=== PATIENT | male | born 2005 | race African-American/Black ===

== ENCOUNTER 2023-08-13 14:56 | Outpatient (CLI) | payer OTHER, SELFPAY ==
--- NOTE | 2023-08-13 15:30 | MR_ITS ---
Patient: REINIER CASANOVA Facility:?[facility] Patient ID:[id number] Site Patient ID:?[id number]. Site :?2003 Study:?MRI-Extremity Left FEMUR W/WO 20 CC DOTAREM-08/13/2023 4:27:53 PM Ordering Physician:?AKASH MOLINA Final Report: INDICATION: Localized swelling/mass. TECHNIQUE: Contrast and contrast enhanced MRI left femur/thigh. 20 milliliters of Dotarem intravenous gadolinium was administered. COMPARISON: No prior. FINDINGS: Osseous structures: No left femoral marrow replacement process, fracture or avascular necrosis. Musculotendinous structures: No acute muscle injury or muscle atrophy. Soft tissues: There is a lobulated multifocal process present within the anterior subcutaneous tissues of the left thigh. This spans a 15 cm craniocaudad extent by 10 cm medial/lateral by 2 cm anterior/posterior extent. Process demonstrates high T2 signal with intervening preserved subcutaneous fat between lobules of the process. Process intensely enhances following gadolinium administration. Presence of intervening subcutaneous fat favors a benign process with vascular malformation type lesion favored. Subcutaneous hemangioma is a primary consideration. A venous malformation is probably less likely. Appearance not highly suggestive of a soft tissue sarcoma. Plexiform neurofibroma less likely. IMPRESSION: 1. 15 cm lobulated multifocal process within the anterior subcutaneous tissues of the left thigh. Presence of intervening subcutaneous fat between the lobules favors benign process with vascular malformation type lesion favored. Subcutaneous hemangioma is a primary consideration. Venous malformation probably less likely. Plexiform neurofibroma less likely. Appearance is not highly suggestive of soft tissue sarcoma. Consider MRI surveillance. Dictated by Marcio Maddox MD @ 08/14/2023 9:27:42 AM Signed by:?Marcio Maddox MD @08/14/2023 9:27:42 AM (Electronic Signature)
== END 2023-08-13 14:57 | disposition home or self-care (01) ==
LOC: MRI 14:57
PROVIDERS: Visit Provider Surgery
DX: R22.42 Localized swelling, mass and lump, left lower limb (principal)
CPT/HCPCS: 73720; A9575

== ENCOUNTER 2023-09-03 09:08 | Day surgery (SDC) | payer OTHER, SELFPAY ==
[2023-09-03] VITALS (16 sets, daily range): BP systolic 124–151; BP diastolic 72–101; PULSE 63–91; RESP 16–21; TEMP 36.3–36.9; O2SAT 95–100; BMI 23.7
--- NOTE | 2023-09-03 09:23 | CT_ITS ---
Patient: REINIER CASANOVA Facility:?[facility] Patient ID:?[id number] Site Patient ID:?[id number] Site :?2003 Study:?CT-Abdomen/Pelvis 81CC ISOVUE 370-09/03/2023 10:37:26 AM Ordering Physician:?DR. BLACKMAN Final Report: INDICATION: Lower abdominal pain, not otherwise described. COMPARISON: None available. TECHNIQUE: CT of the abdomen and pelvis with 81 cc of Isovue 370 intravenous contrast. Please note that all CT scans at this facility use dose modulation, iterative reconstruction, and/or weight-based dosing when appropriate to reduce radiation dose to as low as reasonably achievable. FINDINGS: ABDOMEN Liver: Normal hepatic attenuation. No suspicious focal hepatic lesion. No intrahepatic biliary ductal dilatation. Patent portal and hepatic veins. Gallbladder: Normal gallbladder size. Normal common duct caliber. No pericholecystic inflammatory changes. Pancreas: Normal pancreatic attenuation. No focal lesion. Normal duct caliber. No peripancreatic inflammatory changes. Spleen: Normal splenic attenuation. No suspicious focal lesion. Patent splenic artery and vein. Adrenal Glands: Symmetrical adrenal glands. No focal lesion of significance. Kidneys: Normal bilateral renal attenuation. No suspicious focal lesion. No obstructing nephrolith or dilatation of the intrarenal collecting systems. Patent renal arteries and veins. Nondilated upper urinary tracts. Gastrointestinal tract: Findings consistent with early acute uncomplicated appendicitis with dilatation of the appendiceal tip appendiceal measuring 11 mm (series 2; image 100), mucosal hyperenhancement and mild surrounding periappendiceal fat infiltration consistent with edema. No inflammatory changes. Normal mesentery. Normal appendix. Vascular: Abdominal aorta and its major proximal branches including the celiac, superior mesenteric, inferior mesenteric, renal, and bilateral common iliac arteries are patent. Inferior vena cava, portal and superior mesenteric veins are patent. Additional findings: No incidental adenopathy. No significant ascites, free fluid or pneumoperitoneum. PELVIS No bladder lesion is identified. No significant incidental findings related to the prostate and seminal vesicles. No abnormal free fluid. No incidental adenopathy. SKELETON AND BODY WALL No acute or suspicious incidental findings. LOWER THORAX Partially included lower thoracic wall, lungs, pleural spaces and mediastinum are otherwise without significant incidental findings. IMPRESSION: Acute uncomplicated appendicitis. Please note that all CT scans at this facility use dose modulation, iterative reconstruction, and/or weight-based dosing when appropriate to reduce radiation dose to as low as reasonably achievable. Dictated by Junior Uribe MD @ 09/03/2023 10:58:44 AM ----- ADDENDUM ----- ADDENDUM: Report received by Dr. BLACKMAN at 10:59 a.m. [employer] Dictated by Junior Uribe MD @ Sep 03 2023 11:02AM Signed by:?Junior Uribe MD @09/03/2023 10:58:44 AM (Electronic Signature)
--- NOTE | 2023-09-03 09:33 | ED_ITS ---
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 Pain is periumbilical without radiation. He has had no fevers no chills no night sweats he is vomiting but has had no blood in his vomitus. He has had no diarrhea. No recent sick contacts. He has had no similar symptoms. He states his pain is modest and periumbilical without radiation. Related Data Home Medications Medication Instructions Recorded Confirmed No Known Home Medications 07/14/23 07/30/23 Allergies Allergy/AdvReac Type Severity Reaction Status Date / Time No Known Drug Allergies Allergy Verified 09/03/23 10:31 Review of Systems Status of ROS: Reports: 10 or more systems reviewed and unremarkable except as noted in History and below PFSH PFSH Social History What is your current living situation?: I presently have a place to live Problems where you live: no known problems In the past 12 months, utilities in danger of being shut off: yes In past 12 months, lack of transportation kept you from medical appts, meetings, work, or getting things needed for daily living: yes In the past 12 mos, have been you worried that your food would run out before you had money to buy more?: sometimes true In the past 12 mos, the food you bought just didn't last and you didn't have money to buy more?: sometimes true Smoking Status: Never smoker How often do you have a drink containing alcohol: never How often do you have six or more drinks on one occasion: Never AUDIT-C Alcohol total score: 0 Non-prescribed substance use: denies use How often does anyone, including family, friends and others, physically hurt you : never How often does anyone, including family, friends and others, insult or talk down to you: rarely How often does anyone, including family, friends and others, threaten you with harm: never How often does anyone, including family, friends and others, scream or curse at you: rarely Little interest or pleasure in doing things: not at all Feeling down, depressed, or hopeless: several days Exam Narrative: Exam Narrative: EXAM GENERAL: Patient appears comfortable and well. EYES: No scleral icterus. ENT: Tympanic membranes and oropharynx normal. THYROID: no thyroid nodules or thyromegaly. LYMPH: No supraclavicular or cervical lymphadenopathy. SKIN: Visible skin seen during exam normal or with benign process only. EXT: No dependent lower extremity pedal edema. HEART: Regular rate and rhythm with no murmurs, rubs, or gallops. LUNGS: Clear to auscultation bilaterally with no crackles or wheezes. ABD: Soft, non tender, non distended. PSYCH: Good eye contact, speech is not pressured. Const: Vital Signs, click to edit/add: Vital Signs - 24 hr 09/03/23 09:13 Temperature 98.5 F Pulse Rate [Pulse Oximeter] 72 Respiratory Rate 16 Blood Pressure [Ri ght Upper Arm] 132/81 Pulse Oximetry 98 Oxygen Delivery Me thod Room Air Course Course ED Course: Patient seen and examined. CBC CMP amylase UA CT abdomen pelvis pending. IV started 4 mg of IV Zofran 1000 mL of normal saline given. Vital Signs Vital signs: Initial Vital Signs Temperature 98.5 F 09/03/23 09:13 Temperature Source Temporal Artery Scan 09/03/23 09:13 Pulse Rate 72 09/03/23 09:13 Respiratory Rate 16 09/03/23 09:13 Blood Pressure 132/81 09/03/23 09:13 Blood Pressure Mean 98 09/03/23 09:13 Blood Pressure Position Sitting 09/03/23 09:13 Pulse Oximetry 98 09/03/23 09:13 Oxygen Delivery Method Room Air 09/03/23 09:13 Vital Signs Temperature 98.5 F 09/03/23 09:13 Pulse Rate 72 09/03/23 09:13 Respiratory Rate 16 09/03/23 09:13 Blood Pressure 132/81 09/03/23 09:13 Pulse Oximetry 98 09/03/23 09:13 Oxygen Delivery Method Room Air 09/03/23 09:13 Temperature 98.5 F 09/03/23 09:13 Pulse Rate 72 09/03/23 09:13 Respiratory Rate 16 09/03/23 09:13 Blood Pressure 132/81 09/03/23 09:13 Pulse Oximetry 98 09/03/23 09:13 Oxygen Delivery Method Room Air 09/03/23 09:13 Medications Administered Medications: Discontinued Medications Generic Name Dose Route Start Last Admin Trade Name Brain PRN Reason Stop Dose Admin Ondansetron HCl 4 mg 09/03/23 09:24 09/03/23 09:42 Ondansetron 2 Mg/Ml Inj IVP 09/03/23 09:25 4 mg ONCE ONE Administration Medical Decision Making MDM Narrative Medical decision making narrative: Patient is a 18-year-old gentleman who last 818 hours ago presents with 12 hours of mid abdominal pain nausea and vomiting. Workup shows reasonable laboratory studies. He does have acute uncomplicated appendicitis on his CT scan. Patient will be admitted to same-day surgery for appendectomy. Care transferred to General surgery. Differential diagnosis included but not limited to acute appendicitis perforated viscus gastroenteritis diverticulitis torsed colon. Lab Data Labs: Lab Results 09/03/23 09/03/23 Range/Units 09:35 09:40 WBC 8.72 (4.50-11.00) K/uL RBC 5.28 (4.30-5.90) m/uL Hgb 14.1 (13.5-17.5) gm/dL Hct 44.6 (37.0-53.0) % MCV 85 (80-100) fL MCH 27 (26-34) pg MCHC 32 (32-36) gm/dL RDW Coeff of Cynthia 11.9 (11.5-15.5) % Plt Count 178 (140-440) K/uL Neut % (Auto) 72.3 H (42.0-72.0) % Lymph % (Auto) 16.1 L (20-44) % Crawford % (Auto) 10.6 (0.0-11.0) % Eos % (Auto) 0.6 (0.0-7.0) % Baso % (Auto) 0.3 (0.0-3.0) % Neut # (Auto) 6.30 (1.7-7.0) K/uL Lymph # (Auto) 1.40 (0.90-2.90) K/uL Crawford # (Auto) 0.90 (0.00-0.90) K/UL Eos # (Auto) 0.05 (0.00-0.50) K/uL Baso # (Auto) 0.03 (0.00-0.30) K/uL Abs Immat Gran (auto) 0.01 (0.00-0.30) K/uL Imm/Tot Granulo (auto) 0.1 % Sodium 137 (135-149) mmol/L Potassium 3.8 (3.6-5.1) mmol/L Chloride 109 (96-114) mmol/L Carbon Dioxide 25 (20-32) mmol/L Anion Gap 3 L (7-15) mEq/L BUN 14 (5-24) mg/dL Creatinine 0.7 (0.5-1.5) mg/dL Estimated Creat Clear 173.81 Estimated GFR 135 ml/min Glucose 100 (60-115) mg/dL Calcium 9.3 (8.4-10.6) mg/dL Total Bilirubin 0.8 (0.1-1.5) mg/dL AST 27 (12-35) U/L ALT 21 (4-50) U/L Alkaline Phosphatase 69 (40-150) U/L Total Protein 7.9 (6.0-8.3) g/dL Albumin 4.4 (3.3-5.0) g/dL Amylase 119 H (18-89) U/L Urine Color Yellow (Yellow) Urine Appearance Cloudy A (Clear) Urine pH 7.0 (5.0-8.5) Ur Specific [place] 1.025 (1.000-1.030) Urine Protein Negative (Negative) Urine Glucose (UA) Negative (Negative) Urine Ketones Negative (Negative) Urine Blood Negative (Negative) Urine Nitrite Negative (Negative) Urine Bilirubin Negative (Negative) Urine Urobilinogen 1.0 (0.2-1.0) Ur Leukocyte Esterase Negative (Negative) Urine RBC 0-2 (0-2) Urine WBC 0-2 (0-5) Ur Squamous Epith Cells None (None-Few) Amorphous Sediment Many A (None) Urine Bacteria Few A (None) Discharge Plan Discharge Clinical Impression: Acute appendicitis Patient Disposition: XFER to OR Condition: Stable Prescriptions: No Action No Known Home Medications Follow Up/Referrals: Provider,Not a Local [Primary Care Provider] -
[2023-09-03] MEDS: ONDANSETRON 2 MG/ML inj 4 MG IVP (09:42)
[2023-09-03 09:52] LABS: Basophils Absolute Auto 0.03 K/uL (0.00-0.30); Basophils Percent Auto 0.3 % (0.0-3.0); Eosinophils Absolute Auto 0.05 K/uL (0.00-0.50); Eosinophils Percent Auto 0.6 % (0.0-7.0); Hematocrit 44.6 % (37.0-53.0); Hemoglobin* 14.1 gm/dL (13.5-17.5); Immature Granulocytes Abs Auto 0.01 K/uL (0.00-0.30); Immature Granulocytes Pct Auto 0.1 %; Lymphocytes Percent Auto 16.1 % (20-44); Mean Corpuscular HGB Conc 32 gm/dL (32-36); Mean Corpuscular Hemoglobin 27 pg (26-34); Mean Corpuscular Volume 85 fL (80-100); Monocytes Percent Auto 10.6 % (0.0-11.0); Neutrophils Percent Auto 72.3 % (42.0-72.0); Platelet Count* 178 K/uL (140-440); RDW Coefficient of Variation % 11.9 % (11.5-15.5); Red Blood Count 5.28 m/uL (4.30-5.90); White Blood Count* 8.72 K/uL (4.50-11.00)
[2023-09-03 09:59] LABS: Slide Review Reflex No
[2023-09-03 10:01] LABS: Albumin* 4.4 g/dL (3.3-5.0); Chloride* 109 mmol/L (96-114); Potassium* 3.8 mmol/L (3.6-5.1); Sodium* 137 mmol/L (135-149)
[2023-09-03 10:03] LABS: Amylase* 119 U/L (18-89)
[2023-09-03 10:04] LABS: Alanine Aminotransferase* 21 U/L (4-50); Alkaline Phosphatase* 69 U/L (40-150); Anion Gap 3 mEq/L (7-15); Aspartate Amino Transferase* 27 U/L (12-35); Bilirubin Total* 0.8 mg/dL (0.1-1.5); Blood Urea Nitrogen* 14 mg/dL (5-24); Calcium* 9.3 mg/dL (8.4-10.6); Carbon Dioxide* 25 mmol/L (20-32); Creatinine* 0.7 mg/dL (0.5-1.5); Est. Creatinine Clearance* 173.81; Estimated Glomerular Filt Rate 135 ml/min; Glucose* 100 mg/dL (60-115); Total Protein* 7.9 g/dL (6.0-8.3)
[2023-09-03 10:23] LABS: Appearance Urine Cloudy (Clear); Bilirubin Urine Negative (Negative); Blood Urine Negative (Negative); Color Urine Yellow (Yellow); Glucose Urine Negative (Negative); Ketones Urine Negative (Negative); Leukocyte Esterase Urine Negative (Negative); Nitrite Urine Negative (Negative); Protein Urine Negative (Negative); Specific Gravity Urine 1.025 (1.000-1.030)
[2023-09-03 10:32] LABS: Amorphous Sediment Urine Many; Bacteria Urine Few; RBC Urine 0-2 (0-2); WBC Urine 0-2 (0-5)
[2023-09-03] MEDS: 0.9 % SODIUM CHLORIDE 1000 ml 1,000 ML IV (11:00)
--- NOTE | 2023-09-03 13:03 | P.GSHP_ITS ---
History of Present Illness History of Present Illness Date Seen: 09/03/23 Chief complaint: Vomiting, lower abdominal pain Narrative: Khari Bailey is a 18 year old male Who presents to the emergency department with 1 day of abdominal pain. He states that yesterday evening he developed mid abdominal pain. He thought that maybe he was just hungry so he ate a large amount of food around 11:00 p.m.. He vomited after eating and then felt worse. He tried taking Tylenol however this did not help. He has not had nausea or vomiting since however he has pain that is in the mid abdomen and also in the right lower quadrant. He does feel better since being in the emergency department. He states that it hurts to stretch and the pain is worse with certain movements. He has not had any fevers. [facility] Social History (Updated 09/03/23 @ 13:04 by Radha Brock MD) Narrative: He is a student at [employer]. He is a freshman. He is a journa lism and music major. He does not smoke. Alcohol use is rare. What is your current living situation?: I presently have a place to live Problems where you live: no known problems In the past 12 months, utilities in danger of being shut off: yes In past 12 months, lack of transportation kept you from medical appts, meetings, work, or getting things needed for daily living: yes In the past 12 mos, have been you worried that your food would run out before you had money to buy more?: sometimes true In the past 12 mos, the food you bought just didn't last and you didn't have money to buy more?: sometimes true Smoking Status: Never smoker How often do you have a drink containing alcohol: never How often do you have six or more drinks on one occasion: Never AUDIT-C Alcohol total score: 0 Non-prescribed substance use: denies use How often does anyone, including family, friends and others, physically hurt you : never How often does anyone, including family, friends and others, insult or talk down to you: rarely How often does anyone, including family, friends and others, threaten you with harm: never How often does anyone, including family, friends and others, scream or curse at you: rarely Little interest or pleasure in doing things: not at all Feeling down, depressed, or hopeless: several days Meds Home Medications and Allergies Home Medications Medication Instructions Recorded Confirmed Type No Known Home Medications 07/14/23 07/30/23 History Allergies Allergy/AdvReac Type Severity Reaction Status Date / Time No Known Drug Allergies Allergy Verified 09/03/23 10:31 Exam Narrative: Exam Narrative: General appearance: Alert, cooperative, and in no distress Eyes: PERRLA, eye lids clear, and sclera white HENT Head: Normocephalic Ears: External ears normal Pulmonary: Clear to auscultation bilaterally Cardiovascular Heart: Regular rate and rhythm Extremities: warm and well perfused Gastrointestinal Abdominal: On his abdomen he has no scars. May have a slight umbilical hernia. He is tender in the left lower abdomen as well as the right lower abdomen. The right side is more tender without significant rebound. Musculoskeletal: Extremities: Upper: Both upper extremities have normal joint range of motion and intact strength. Lower: Both lower extremities have normal joint range of motion and intact strength. Skin: Normal skin color, texture, and turgor. Neurologic: No focal deficits Psychiatric: Alert, oriented, cooperative, normal affect. Const: Vital Signs, click to edit/add: Vital Signs - 24 hr 09/03/23 09:13 09/03/23 12:54 Temperature 98.5 F Pulse Rate [Pulse Oximeter] 72 80 Respiratory Rate 16 16 Blood Pressure [Ri ght Upper Arm] 132/81 130/72 Pulse Oximetry 98 97 Oxygen Delivery Me thod Room Air Room Air Results Results Labs: White blood cell count is normal. Abdomen CT scan report/results: report reviewed and image reviewed Additional studies: Patient: KHARI BAILEY Facility: [facility] Site . Site : 2003 Study: CT-Abdomen/Pelvis 81CC ISOVUE 370-09/03/2023 10:37:26 AM Ordering Physician: DR. BLACKMAN Final Report: INDICATION: Lower abdominal pain, not otherwise described. COMPARISON: None available. TECHNIQUE: CT of the abdomen and pelvis with 81 cc of Isovue 370 intravenous contrast. Please note that all CT scans at this facility use dose modulation, iterative reconstruction, and/or weight-based dosing when appropriate to reduce radiation dose to as low as reasonably achievable. FINDINGS: ABDOMEN Liver: Normal hepatic attenuation. No suspicious focal hepatic lesion. No intrahepatic biliary ductal dilatation. Patent portal and hepatic veins. Gallbladder: Normal gallbladder size. Normal common duct caliber. No pericholecystic inflammatory changes. Pancreas: Normal pancreatic attenuation. No focal lesion. Normal duct caliber. No peripancreatic inflammatory changes. Spleen: Normal splenic attenuation. No suspicious focal lesion. Patent splenic artery and vein. Adrenal Glands: Symmetrical adrenal glands. No focal lesion of significance. Kidneys: Normal bilateral renal attenuation. No suspicious focal lesion. No obstructing nephrolith or dilatation of the intrarenal collecting systems. Patent renal arteries and veins. Nondilated upper urinary tracts. Gastrointestinal tract: Findings consistent with early acute uncomplicated appendicitis with dilatation of the appendiceal tip appendiceal measuring 11 mm (series 2; image 100), mucosal hyperenhancement and mild surrounding periappendiceal fat infiltration consistent with edema. No inflammatory changes. Normal mesentery. Normal appendix. Vascular: Abdominal aorta and its major proximal branches including the celiac, superior mesenteric, inferior mesenteric, renal, and bilateral common iliac arteries are patent. Inferior vena cava, portal and superior mesenteric veins are patent. Additional findings: No incidental adenopathy. No significant ascites, free fluid or pneumoperitoneum. PELVIS No bladder lesion is identified. No significant incidental findings related to the prostate and seminal vesicles. No abnormal free fluid. No incidental adenopathy. SKELETON AND BODY WALL No acute or suspicious incidental findings. LOWER THORAX Partially included lower thoracic wall, lungs, pleural spaces and mediastinum are otherwise without significant incidental findings. IMPRESSION: Acute uncomplicated appendicitis. Please note that all CT scans at this facility use dose modulation, iterative reconstruction, and/or weight-based dosing when appropriate to reduce radiation dose to as low as reasonably achievable. Dictated by Junior Uribe MD @ 09/03/2023 10:58:44 AM Progress Note:A&P Assessment and plan (1) Acute appendicitis: Status: Acute Plan The patient is a 18-year-old male with acute appendicitis. We discussed options for management. He is understandably nervous about surgery as he is from [place] and does not have family here with him. We discussed appendectomy as well as risks, benefits and recovery. This can most often be done laparoscopically. It is unlikely that his appendix has perforated, however he understands that perforated appendicitis does carry increased risk of postoperative complications such as abscess. We also discussed non operative management of appendicitis. He does not have an appendicolith and has no signs of perforation or sepsis. I think he would be a reasonable candidate for this if he so desired. We discussed that we would treat him 1st with IV antibiotics followed by oral antibiotics. If at any point he worsened he would return to be seen. He understands that there is a risk of perforation, making surgery more complicated. The literature sites a 90% success rate with non operative management In the 1st week, however he is still at risk for developing appendicitis in the future and over time will likely develop appendicitis again. We discussed that there is really no options to try to prevent appendicitis in the future, other than a healthy balanced diet. I also spoke to the patient's aunt again relaying risks and benefits of each management option and he spoke with her and elected to proceed with appendectomy. He last ate last evening therefore we will plan on proceeding urgently this afternoon.
[2023-09-03] MEDS: BUPIVACAINE 0.25% 30 ML INJECTION (13:24)
[2023-09-03] MEDS: LACTATED RINGERS 1000 ML 1,000 ML 75 ML IV (13:55)
--- NOTE | 2023-09-03 13:55 | P.GSOP_ITS ---
Operative Note Date of procedure: 09/03/23 Pre-op diagnosis: Acute appendicitis Post-op diagnosis: Acute, non perforated appendicitis Type of Procedure: Laparoscopic appendectomy Indications: The patient is a 18-year-old male who presents to emergency department with 1 day of abdominal pain which moved to his right lower quadrant. Workup revealed early acute appendicitis. We discussed options for management and I recommended appendectomy. After discussion of risks and benefits of both appendectomy verses non operative management with antibiotics, he agreed to proceed with appendectomy. Procedure Description: After discussing the risks and benefits of the procedure, the patient signed informed consent.? The operative site was marked and the patient was brought to the operating room and placed on the operating table in supine position.? Care was taken to pad the patient's pressure points.?? The patient was then intubated by anesthesia.?? The operative site was then prepped and draped in the usual sterile fashion.? A time-out was then performed. Entrance to the abdomen was obtained via a 5 mm optical trocar in the left upper quadrant. The abdomen was insufflated and briefly surveyed for any signs of injury. There were none. A 12 mm port was placed inferior to the umbilicus as well as a 5 mm port in the left lower quadrant. Both were done under direct vision. The patient was then placed in Trendelenburg position with the right side up. The small bowel was gently moved out of the way and the appendix was in view. it was inflamed and dilated. There was fibrinous exudate located on the appendix. No sign of perforation. A small amount of dissection was necessary to free the appendix from the surrounding pelvic attachments. The appendix was grasped and pulled into view. A mesenteric window was created between the base of the appendix and the mesoappendix. An Endo-MIL purple load stapler was then used to transect the appendix at its base. A vascular load stapler was then used to divide the mesoappendix. The staple lines were inspected for bleeding. There was none. The appendix was then removed from the abdomen using an Endo- Catch bag. The specimen was sent to pathology. The 12 mm port site fascia was closed with 0 Vicryl. The skin was then closed with absorbable subcuticular suture. Sterile dressings were then applied. Instrument sponge and needle counts were correct at the end of the case. The patient was then woken and transported to the PACU in stable condition. ? The patient tolerated the procedure well. Findings: Acute non perforated appendicitis Anesthesia: GETA Surgeon: Radha Brock MD Estimated blood loss (mL): 5 Specimen: Appendix Condition: stable Disposition: PACU
--- NOTE | 2023-09-03 13:59 | W.ANESCHARGE ---
Anesthesia Charges Start Date/Time Anesthesia Start Date: 09/03/23 Anesthesia Start Time: 12:58 Stop Date/Time Anesthesia Stop Date: 09/03/23 Anesthesia Stop Time: 14:00
--- NOTE | 2023-09-03 14:45 | SUR.PHASEI ---
Patient meets anesthesia discharge criteria for PACU.
--- NOTE | 2023-09-03 14:55 | W.ANESCHARGE ---
Anesthesia Charges Start Date/Time Anesthesia Start Date: 09/03/23 Anesthesia Start Time: 12:58 Stop Date/Time Anesthesia Stop Date: 09/03/23 Anesthesia Stop Time: 14:00
[2023-09-03] MEDS: HYDROCODONE-ACETAMIN 5-325 MG 1 TAB PO (15:03)
--- NOTE | 2023-09-03 16:14 | SUR.PHASEII ---
iv dc'd intact
== END 2023-09-03 16:24 | disposition home or self-care (01) ==
LOC: ED 11:41 → OR 12:57
PROVIDERS: Emergency Provider Internal Medicine; Visit Provider Surgery
PROC: 0DTJ4ZZ Resection of Appendix, Percutaneous Endoscopic Approach (ICD-10-PCS; CPT 44970; principal; 2023-09-03 13:00)
DX: K35.80 Unspecified acute appendicitis (principal); R10.33 Periumbilical pain
CPT/HCPCS: 44970; 00840; 36415; 74177; 80053; 81001; 81003; 82150; 85025; 87086; 88304; 99284; 99285; A9270; J0330; J0665; J1885; J2250; J2405; J2543; J2704; J3010; J3490; J7030; J7120; Q9967

== ENCOUNTER 2023-11-12 08:59 | Emergency (ER) | payer OTHER, SELFPAY ==
[2023-11-12 09:07] VITALS: BP 145/90; PULSE 68; RESP 18; TEMP 37.1; O2SAT 99; BMI 24.0
--- NOTE | 2023-11-12 09:18 | ED_ITS ---
HPI - General Adult General Chief complaint: Unspecified Complaint, Adult Stated complaint: STD Testing Time Seen by Provider: 11/12/23 09:09 Source: patient Mode of arrival: ambulatory Limitations: no limitations History of Present Illness HPI narrative: 18-year-old male coming in today requesting routine STI screening. 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 Related Data Home Medications ?Medication ?Instructions ?Recorded ?Confirmed No Known Home Medications 07/14/23 07/30/23 Allergies Allergy/AdvReac Type Severity Reaction Status Date / Time No Known Drug Allergies Allergy Verified 09/15/23 10:18 Review of Systems Status of ROS: Reports: 6 or more systems reviewed and unremarkable except as noted in History and below PFSH PFS Social History Narrative: He is a student at [employer]. He is a freshman. He is a journalism and music major. He does not smoke. Alcohol use is rare. What is your current living situation?: I presently have a place to live Problems where you live: no known problems In the past 12 months, utilities in danger of being shut off: yes In past 12 months, lack of transportation kept you from medical appts, meetings, work, or getting things needed for daily living: yes In the past 12 mos, have been you worried that your food would run out before you had money to buy more?: sometimes true In the past 12 mos, the food you bought just didn't last and you didn't have money to buy more?: sometimes true Smoking Status: Never smoker How often do you have a drink containing alcohol: never How often do you have six or more drinks on one occasion: Never AUDIT-C Alcohol total score: 0 Non-prescribed substance use: denies use How often does anyone, including family, friends and others, physically hurt you : never How often does anyone, including family, friends and others, insult or talk down to you: rarely How often does anyone, including family, friends and others, threaten you with harm: never How often does anyone, including family, friends and others, scream or curse at you: rarely Little interest or pleasure in doing things: not at all Feeling down, depressed, or hopeless: several days Exam Narrative: Exam Narrative: Well-nourished well-developed patient in no acute distress. Alert and oriented. Answers questions appropriately. Mood and affect are appropriate. Thoughts are goal oriented and rational. No tangential or magical thinking noted. Patient speaks in full sentences without needing to catch their breath. Const: Vital Signs, click to edit/add: Vital Signs - 24 hr 11/12/23 09:07 Temperature 98.8 F Pulse Rate [Right Pulse Oximeter] 68 Respiratory Rate 18 Blood Pressure [Ri ght Upper Arm] 145/90 H Pulse Oximetry 99 Oxygen Delivery Me thod Room Air Course Vital Signs Vital signs: Initial Vital Signs Temperature 98.8 F 11/12/23 09:07 Temperature Source Temporal Artery Scan 11/12/23 09:07 Pulse Rate 68 11/12/23 09:07 Pulse Rhythm Regular 11/12/23 09:07 Pulse Strength 3+ Normal 11/12/23 09:07 Respiratory Rate 18 11/12/23 09:07 Blood Pressure 145/90 H 11/12/23 09:07 Blood Pressure Mean 108 H 11/12/23 09:07 Blood Pressure Position Semi-Fowlers 11/12/23 09:07 Pulse Oximetry 99 11/12/23 09:07 Oxygen Delivery Method Room Air 11/12/23 09:07 Vital Signs Temperature 98.8 F 11/12/23 09:07 Pulse Rate 68 11/12/23 09:07 Respiratory Rate 18 11/12/23 09:07 Blood Pressure 145/90 H 11/12/23 09:07 Pulse Oximetry 99 11/12/23 09:07 Oxygen Delivery Method Room Air 11/12/23 09:07 Temperature 98.8 F 11/12/23 09:07 Pulse Rate 68 11/12/23 09:07 Respiratory Rate 18 11/12/23 09:07 Blood Pressure 145/90 H 11/12/23 09:07 Pulse Oximetry 99 11/12/23 09:07 Oxygen Delivery Method Room Air 11/12/23 09:07 Medical Decision Making MDM Narrative Medical decision making narrative: Patient requesting STI testing for HIV, gonorrhea, chlamydia, syphilis, hepatitis-B, hepatitis-C. Discharge Plan Discharge Clinical Impression: Routine screening for STI (sexually transmitted infection) Patient Disposition: Home, Self-Care Condition: Stable Additional Instructions: Results will be put on your portal. Call your primary care provider if you have any questions. Prescriptions: No Action No Known Home Medications Follow Up/Referrals: Provider,Not a Local [Primary Care Provider] - Stand Alone Forms: [employer] Info Instructions
[2023-11-12 10:26] LABS: Hepatitis B Surface Antigen* Negative (Negative)
[2023-11-12 10:44] LABS: Hepatitis C Virus Antibody* Negative (Negative)
[2023-11-12 11:01] LABS: Chlamydia DNA Amplified* NOT DETECTED (No Detected); GC DNA Amplified* NOT DETECTED (No Detected)
[2023-11-12 11:02] LABS: HIV 1/2/P24 Combo Screen* Negative (Negative)
[2023-11-14 19:15] LABS: Rapid Plasma Reagin (RPR) Non Reactive (Non Reactive)
== END 2023-11-12 09:36 | disposition home or self-care (01) ==
LOC: ED 09:24
PROVIDERS: Emergency Provider Family Medicine
DX: Z11.3 Encounter for screening for infections with a predominantly sexual mode of transmission (principal)
CPT/HCPCS: 36415; 86592; 86703; 86803; 87340; 87491; 87591; 99282; 99283

== ENCOUNTER 2024-01-09 12:52 | Emergency (ER) | payer OTHER, SELFPAY ==
[2024-01-09 12:57] VITALS: BP 130/72; PULSE 73; RESP 18; TEMP 36.2; O2SAT 98; BMI 23.7
--- NOTE | 2024-01-09 13:27 | ED.GENADULT ---
HPI - General Adult General Chief complaint: Ear/Nose/Throat Problem Stated complaint: ear pressure 3weeks Time Seen by Provider: 01/09/24 12:53 History of Present Illness HPI narrative: 18-year-old male whose home is [facility], he is attending [employer]. He flew back couple of weeks ago and has had ear pressure for the 2-3 weeks since he flew back from [place]. He has not had pain now but he feels a crackling sensation is years occasionally left is worse than right now, but he has no pain either ear. He has been generally quite healthy. He has tried some decongestants. Related Data Home Medications ?Medication ?Instructions ?Recorded ?Confirmed No Known Home Medications 07/14/23 01/09/24 Allergies Allergy/AdvReac Type Severity Reaction Status Date / Time No Known Drug Allergies Allergy Verified 01/09/24 13:02 Review of Systems Status of ROS: Reports: 6 or more systems reviewed and unremarkable except as noted in History and below [facility] Social History Narrative: He is a student at [employer]. He is a freshman. He is a journalism and music major. He does not smoke. Alcohol use is rare. What is your current living situation?: I presently have a place to live Problems where you live: no known problems In the past 12 months, utilities in danger of being shut off: yes In past 12 months, lack of transportation kept you from medical appts, meetings, work, or getting things needed for daily living: yes In the past 12 mos, have been you worried that your food would run out before you had money to buy more?: sometimes true In the past 12 mos, the food you bought just didn't last and you didn't have money to buy more?: sometimes true Smoking Status: Never smoker Do you use any of these nicotine containing products: None How often do you have a drink containing alcohol: monthly or less How often do you have six or more drinks on one occasion: Never AUDIT-C Alcohol total score: 1 Non-prescribed substance use: denies use How often does anyone, including family, friends and others, physically hurt you: never How often does anyone, including family, friends and others, insult or talk down to you: rarely How often does anyone, including family, friends and others, threaten you with harm: never How often does anyone, including family, friends and others, scream or curse at you: rarely Little interest or pleasure in doing things: not at all Feeling down, depressed, or hopeless: several days service: No Exam Narrative: Exam Narrative: Objective: Patient has bilateral serous otitis No otitis media Rest of HEENT is unremarkable Const: Vital Signs, click to edit/add: Vital Signs - 24 hr 01/09/24 12:57 Temperature 97.1 F L Pulse Rate [Right Pulse Oximeter] 73 Respiratory Rate 18 Blood Pressure [Ri ght Upper Arm] 130/72 Pulse Oximetry 98 Oxygen Delivery Me thod Room Air Course Vital Signs Vital signs: Initial Vital Signs Temperature 97.1 F L 01/09/24 12:57 Temperature Source Temporal Artery Scan 01/09/24 12:57 Pulse Rate 73 01/09/24 12:57 Pulse Rhythm Regular 01/09/24 12:57 Respiratory Rate 18 01/09/24 12:57 Blood Pressure 130/72 01/09/24 12:57 Blood Pressure Mean 91 01/09/24 12:57 Blood Pressure Position Sitting 01/09/24 12:57 Pulse Oximetry 98 01/09/24 12:57 Oxygen Delivery Method Room Air 01/09/24 12:57 Vital Signs Temperature 97.1 F L 01/09/24 12:57 Pulse Rate 73 01/09/24 12:57 Respiratory Rate 18 01/09/24 12:57 Blood Pressure 130/72 01/09/24 12:57 Pulse Oximetry 98 01/09/24 12:57 Oxygen Delivery Method Room Air 01/09/24 12:57 Temperature 97.1 F L 01/09/24 12:57 Pulse Rate 73 01/09/24 12:57 Respiratory Rate 18 01/09/24 12:57 Blood Pressure 130/72 01/09/24 12:57 Pulse Oximetry 98 01/09/24 12:57 Oxygen Delivery Method Room Air 01/09/24 12:57 Medical Decision Making MDM Narrative Medical decision making narrative: 18-year-old male with bilateral serous otitis likely from barotrauma or pressure changes. I think this will clear natural on its own. He has tried some Valsalva maneuvers, he is try decongestant. He can use Tylenol as needed. I think if he is not cleared in the next month he still notices symptoms, I would recommend he call back and get an ENT appointment with Dr. Sj Norris. I would recommend recheck sooner through ear pain or fever. He was comfortable this plan. He should engage in normal activities and diet. Discharge Plan Discharge Clinical Impression: Acute serous otitis media Patient Disposition: Home, Self-Care Condition: Stable Additional Instructions: Observation, Tylenol if needed, recheck with Dr. Sj Norris in ENT physician if not better in a month. Return sooner problems or concerns. Activity Level: No Restrictions Discharge Diet: Regular Prescriptions: No Action No Known Home Medications Follow Up/Referrals: Provider,Not a Local [Primary Care Provider] - Stand Alone Forms: [employer] Info Instructions
== END 2024-01-09 13:40 | disposition home or self-care (01) ==
LOC: ED 13:30
PROVIDERS: Emergency Provider Family Medicine
DX: H60.503 Unspecified acute noninfective otitis externa, bilateral (principal)
CPT/HCPCS: 99283

== ENCOUNTER 2024-10-21 18:19 | Outpatient (CLI) | payer BC, SELFPAY ==
[2024-10-21 22:40] LABS: Chlamydia DNA Amplified* NOT DETECTED (No Detected); GC DNA Amplified* NOT DETECTED (No Detected)
== END 2024-10-21 18:20 | disposition home or self-care (01) ==
PROVIDERS: Visit Provider Physician Assistant Medical
DX: Z11.3 Encounter for screening for infections with a predominantly sexual mode of transmission (principal)
CPT/HCPCS: 87491; 87591

== ENCOUNTER 2024-10-21 18:19 | Outpatient (CLI) | payer BC, SELFPAY | END 2024-10-21 18:20 | disposition home or self-care (01) | LOC: LKVREF 18:20 | PROVIDERS: Visit Provider Physician Assistant Medical | DX: Z11.3 Encounter for screening for infections with a predominantly sexual mode of transmission (principal); Z11.59 Encounter for screening for other viral diseases; Z11.4 Encounter for screening for human immunodeficiency virus [HIV] | CPT/HCPCS: 86592; 86703; 86706; 86803; 87340; 87529 ==

== ENCOUNTER 2025-03-31 16:25 | Outpatient (CLI) | payer BC, SELFPAY | END 2025-03-31 16:26 | disposition home or self-care (01) | LOC: NFLDUCREF 16:26 | DX: Z11.3 Encounter for screening for infections with a predominantly sexual mode of transmission (principal) | CPT/HCPCS: 86703 ==